=== PATIENT | female | born 1985 | race Caucasian/White ===

== ENCOUNTER 2017-05-13 06:00 | Inpatient (IN) ==
[2017-05-13] MEDS ORDERED: Ondansetron 4 MG/2 ML VIAL IVP PRN (08:48)
[2017-05-13] MEDS ORDERED: Naloxone 0.4 MG/ML INJ IVP PRN (08:48)
[2017-05-13] MEDS ORDERED: Famotidine 20 MG/2 ML VIAL IVP PRN (08:48)
[2017-05-13] MEDS ORDERED: *HR* FentaNYL (PF) 100 MCG/2 ML VIAL IVP PRN (08:48)
[2017-05-13] MEDS ORDERED: miSOPROStol 100 MCG TABLET PO SCH (09:00)
[2017-05-13] MEDS ORDERED: Ringers Solution, Lactated 1,000 ML IVC SCH (09:00)
[2017-05-13 09:38] LABS: Basophils % 0.3 %; Eosinophils % 0.2 %; Hematocrit 40.4 % (35.3-44.9); Hemoglobin 13.9 g/dL (11.5-15.4); Immature Granulocytes % 1.7 % (0-4); Lymphocytes # 1.7 K/mcL (0.6-4.6); Mean Corpuscular HGB Conc 34.4 g/dL (31.6-35.5); Mean Corpuscular Hemoglobin 32.3 pg (28.0-33.3); Mean Platelet Volume 11.4 fL (9.4-12.4); Monocytes # 0.8 K/mcL (0.0-1.3); Monocytes % 8.1 %; Neutrophils # 7.4 K/mcL (1.6-8.9); Platelet Count 205 K/mcL (140-400); Red Cell Distribution Width 13.6 % (11.5-14.5); Segmented Neutrophils % 72.7 %
[2017-05-13 09:45] LABS: Amphetamine Screen,Urine Negative ng/mL (Cutoff=1000); Barbiturate Screen,Urine Negative ng/mL (Cutoff=200); Benzodiazepines Screen,Urine Negative ng/mL (Cutoff=200); Cannabinoid Screen,Urine Negative ng/mL (Cutoff = 50); Cocaine Screen,Urine Negative ng/mL (Cutoff= 300); Opiate Screen,Urine Negative ng/mL (Cutoff=300); Phencyclidine Screen,Urine Negative ng/mL (Cutoff=25)
--- NOTE | 2017-05-13 09:48 | Anesthesia Evaluation PreOp ---
Date of Encounter: 05/13/17 Time of Encounter: 08:39 - Past History Planned Operation: vaginal del, G1 induction Cardiac History: Denies any Significant Hx Pulmonary History: Denies Any Significant HX EXTRACTION MACHINE OPERATOR History: Denies Any Significant HX Other Medical History: Denies Any Significant HX Anesthesia History: No Prior Anesthetic Complications, Past Anesthesia Alcohol Use: none Drug use: none Medications and Allergies 3 Allergy/AdvReac Type Severity Reaction Status Date / Time No Known Allergies Allergy Verified 10/03/16 11:08 Anesthesia Results - Labs 05/13/17 09:20 Anesthesia Exam - HEENT Pupil (Motor): Pupils equal Mallampati: II Teeth: Normal Oral Opening: Greater than 3 - EXTRACTION MACHINE OPERATOR LOC: Oriented EXTRACTION MACHINE OPERATOR Motor: Normal RUE, Normal LUE, Normal RLE, Normal LLE, Normal Face EXTRACTION MACHINE OPERATOR Sensory: Normal: RUE, LUE, RLE, LLE, Face - Cardiac Rhythm: Regular Murmur: None - Pulmonary Breath Sounds: bilateral Clear Respiratory Effort: Symmetrical Anesthesia Assess/Plan ASA Score: 2 Modified [place] Scale for Level of Consciousness: Cooperative, oriented, and tranquil Anesthetic Plan: General, Regional Monitoring Plan: Standard Monitors
--- NOTE | 2017-05-13 10:27 | OB/GYN History & Physical ---
Date of Encounter: 05/13/17 Time of Encounter: 10:18 Assessment and Plan (1) 39 weeks gestation of Current visit: Yes Status: Acute Labor and Delivery for IOL Routine labor management GBS- Negative Cytotec for induction Epidural for management of pain Consider pitocin and/or AROM for augmentation Anticipate vaginal delivery (2) Elective induction of labor planned Current visit: Yes Status: Acute See above -Cytotec History of Present Illness Chief complaint: Induction of labor HPI: Ms. Gambino is a 32 year old female at 39 weeks and 3 days gestation presents to the hospital for induction of labor. Patient has had an uncomplicated . She presents this morning to the hospital. She denies fluid leaking or vaginal bleeding. She is having contractions 3-5 minutes apart lasting 1 minute in length. She reports good movement. She denies any headache, visual changes, nausea or vomiting, fever, dysuria, or diarrhea. Blood type 0 + GBS - Rubella antibodies + Nonreactive hepatitis B surface antigen Treponema pallidum - Varicella - Past Med Surg Social Fam HX - Past Medical History Attestation: Yes The following information was validated with the patient. Medical history: no medical history Psychiatric history: no psych history - Social History Smoking Status: Never smoker Smokeless Tobacco Status: No Alcohol use: none Drug use: none - Family History Father Living Status: Age at : 43 Hx Family Cardiac Disorders: Yes Hx Family Cancer: Yes Obstetrical History - Pregnancies : 1 Para: 0 Term: 0 : 0 Ab's: 0 Livin Medications and Allergies 3 Allergy/AdvReac Type Severity Reaction Status Date / Time No Known Allergies Allergy Verified 10/03/16 11:08 Review of System OB All systems PM: reviewed and no additional remarkable complaints except as stated Exam - Constitutional Constitutional: well developed, well nourished, no acute distress - HEENT HEENT: Mucus Membranes Moist - Lungs Respiratory exam: CTAB (no wheezes, rales or rhonchi.) - Cardiovascular Cardiovascular exam: RRR (no murmurs, rubs or gallops), +S1, +S2 - Abdomen Abdomen: Present: gravid - Extremities Extremities exam: normal inspection Deep Tendon Reflex Grade: 2+ Normal - Cervix Dilation: 3 (per nurse) Effacement: 80 (per nurse) Station: -2 - Uterus Uterus exam: Present: normal size (non tender), normal contour Results Result Diagrams: 05/13/17 09:20 All other labs normal. - VTE Reasons for not Prescribing Prophylaxis: Treatment not Indicated - Low risk for VTE
[2017-05-13] MEDS ORDERED: Epidural Premix (fent/bupiv) 110 ML EP ONE ×2 (13:07→20:14)
--- NOTE | 2017-05-13 14:11 | OB Labor Progress Note ---
Date of Encounter: 05/13/17 Time of Encounter: 14:08 Labor Progress Note - Subjective Subjective: Patient resting in bed. Discussed POC with patient. Patient denies any questions or concerns. - Cervix Cervix: 5/80/-1 - Heart Tones Heart Tones: 140 bpm moderate variability +15x15 accels no decels noted. Cat 1 tracing. - Oracle Oracle: 2-5 min apart - Interventions Interventions: SVE, AROM large amount of clear fluid. IUPC placed without difficulty. Patient tolerated well. - Plan Plan: Continue labor management Will start Pitocin for labor for effective labor pattern if needed. Patient may have Nubain or epidural for pain management if desires.
--- NOTE | 2017-05-13 14:50 | Anesthesia Procedures ---
Date of Encounter: 05/13/17 Time of Encounter: 14:24 Procedures: Anesthesia - Epidural/Spinal Patient ID/Chart reviewed: Yes Patient examined: Yes OB Eval: Gestational age: term OB Eval: : 1 OB Eval: Contractions: Non-stressed pattern Consent Obtained: Yes Supplemental Oxygen: None/Room Air Site Prep: Aseptic Technique, Sterile prep and drape, 0.5% Chlorhexidine/Alcohol Patient position: upright Local Anesthetic: Lidocaine 1% Amount of Local Anesthetic used: 2 Touhy Needle Gauge: 18 Touhy Needle Depth (cm): 8 Catheter Depth at Skin (cm): 12 Test Dose (1.5% Lido + Epi): Volume given (mls): 3 Test Dose Result: Negative Loading Dose: Other: 12 from solution Loading Dose Administered: Thru Catheter Infusion Med: 0.125% Bupivacaine w/ 2 mcg/ml Fentanyl Infusion Rate (mls/hr): [address]: Tegaderm, Tape Interspace Used: L4-L5 Loss of Resistance (MATT): Yes (saline) Blood: No CSF: No Paresthesia: No Procedure: vss though out, FHR stable per RN's
[2017-05-13] MEDS ORDERED: Oxytocin 20 units/ LR 1000 mL 20 UNIT/1,000 ML BAG IVC SCH (15:00)
[2017-05-14] MEDS ORDERED: Epidural Premix (fent/bupiv) 110 ML EP ONE (03:26)
--- NOTE | 2017-05-14 04:25 | OB/GYN Procedure Note ---
Delivery - Delivery Date: 05/14/17 Provider: Jackie Leblanc Intrapartum events: none Delivery induction: AROM, oxytocin, misoprostol Delivery monitor: external FHT, external uterine, internal FHT, internal uterine Anesthesia: epidural Estimated Blood Loss: 475 - Infant (s) A Delivery Date: 05/14/17 Delivery Time: 03:41 Presentation: vertex Position: JERRY Route of delivery: Gender: Male Viability: Viable Pounds: 8 Ounces: 9 Weight Gram: 3.73 kg at 1 minute: 8 at 5 mins: 9 Shoulder Dystocia: not encountered Specimens collected: cord blood Placenta: spontaneous Cord: 3 umbilical vessels - Repair Episiotomy: none Laceration Description: Perineal - 2nd Degree - Complications Delivery complications: none Delivery comments: Called to evaluate patient for decels with pushing. Pitocin is off, patient fredi q 5-6 minutes. head OA at +1 station. With maternal effort head progresses with variable decels. Maternal exhaustion and intolerance of labor patient was verbally consented for vacuum application. Bladder was drained. Kiwi applied to head and with maternal effort during contraction with vacuum to the green indicator and 2 pop offs with advancement of the head. Baby tolerated well. The vacuum was not reapplied after the second pop off until the next contraction. The Kiwi was reapplied with the next contraction in the same manner and the head delivered. The kiwi was released. No nuchal cord or shoulder dystocia was encountered. Infant was placed on mom's abdomen. Cord was allowed to cease pulsation prior to double clamp and cut. Cord blood was collected. She delivered over a second degree perineal laceration. The laceration was repaired using 2-0 and 3-0 vicryl in standard fashion. Placenta delivered spontaneous, complete, and intact with 3 vessel cord. Mother and are recovering in LDR in stable condition. - Disposition Mom disposition: stable in LDR disposition: stable in LDR
[2017-05-14] MEDS ORDERED: Acetaminophen 325 MG TABLET PO PRN (06:11)
[2017-05-14] MEDS ORDERED: Oxytocin 20 units/ LR 1000 mL 20 UNIT/1,000 ML BAG IVC SCH (06:11)
[2017-05-14] MEDS ORDERED: Oxytocin 20 units/ LR 1000 mL 20 UNIT/1,000 ML BAG IVC ONE (06:11)
[2017-05-14] MEDS: Prenatal Vit/FA 1 EACH TABLET PO SCH (09:12)
[2017-05-14] MEDS: Ibuprofen 600 MG TABLET PO PRN ×2 (09:13→15:47)
[2017-05-15] MEDS: Ibuprofen 600 MG TABLET PO PRN (03:30)
[2017-05-15 06:24] LABS: Basophils % 0.2 %; Eosinophils # 0.1 K/mcL (0.0-0.6); Eosinophils % 1.1 %; Hematocrit 25.8 % (35.3-44.9); Immature Granulocytes % 1.5 % (0-4); Lymphocytes # 2.3 K/mcL (0.6-4.6); Lymphocytes % 18.6 %; Mean Corpuscular HGB Conc 32.9 g/dL (31.6-35.5); Mean Corpuscular Hemoglobin 31.6 pg (28.0-33.3); Mean Corpuscular Volume 95.9 fL (83.0-100.0); Mean Platelet Volume 11.1 fL (9.4-12.4); Monocytes # 0.9 K/mcL (0.0-1.3); Monocytes % 7.5 %; Neutrophils # 8.9 K/mcL (1.6-8.9); Platelet Count 158 K/mcL (140-400); Red Blood Count 2.69 M/mcL (3.82-4.97); Red Cell Distribution Width 14.2 % (11.5-14.5); Segmented Neutrophils % 71.1 %
[2017-05-15 06:27] LABS: Hemoglobin 8.5 g/dL (11.5-15.4)
[2017-05-15 08:15] VITALS: BP 125/64
[2017-05-15] MEDS: Prenatal Vit/FA 1 EACH TABLET PO SCH (08:16)
--- NOTE | 2017-05-15 09:28 | Discharge Summary ---
Date of Encounter: 05/15/17 Time of Encounter: 09:25 - Discharge Diagnosis (1) Vaginal delivery Priority: Primary Status: Acute Comments: Pt meeting all posptartum milestones. She desires discharge home today. (2) Mother currently breast-feeding Priority: Secondary Status: Acute Comments: Pt has madela breastpump at home (3) anemia Priority: Secondary Status: Acute Comments: home on iron, pt denies s/sx anemia - Discharge Medications Prescriptions: Ibuprofen [Motrin] 600 mg PO Q6HR PRN #30 tablet PRN Reason: Cramping Docusate [Colace] 100 mg PO BID #60 capsule Ferrous Sulfate 325 mg PO DAILY #30 tablet Home Medications: Acetaminophen [Tylenol] 650 mg PO Q6HR PRN tablet 05/15/17 [Rx] Docusate [Colace] 100 mg PO BID #60 capsule 05/15/17 [Rx] Ferrous Sulfate 325 mg PO DAILY #30 tablet 05/15/17 [Rx] Ibuprofen [Motrin] 600 mg PO Q6HR PRN #30 tablet 05/15/17 [Rx] Allergies/Adverse Reactions: 3 Allergy/AdvReac Type Severity Reaction Status Date / Time No Known Allergies Allergy Verified 10/03/16 11:08 Data Procedures and tests throughout hospitalization: Laboratory Tests 05/13/17 05/13/17 05/15/17 09:20 09:20 05:57 WBC 10.2 12.5 H RBC 4.30 2.69 L Hgb 13.9 8.5 L D Hct 40.4 25.8 L MCV 94.0 95.9 MCH 32.3 31.6 MCHC 34.4 32.9 RDW 13.6 14.2 Plt Count 205 158 MPV 11.4 11.1 Immature Gran % 1.7 1.5 Seg Neutrophils % 72.7 71.1 Lymphocytes % 17.0 18.6 Monocytes % 8.1 7.5 Eosinophils % 0.2 1.1 Basophils % 0.3 0.2 Neutrophils # 7.4 8.9 Lymphocytes # 1.7 2.3 Monocytes # 0.8 0.9 Eosinophils # 0.0 0.1 Basophils # 0.0 0.0 Urine Opiates Screen Negative Ur Barbiturates Screen Negative Ur Phencyclidine Scrn Negative Ur Amphetamines Screen Negative U Benzodiazepines Scrn Negative Urine Cocaine Screen Negative U Marijuana (THC) Screen Negative Labs on day of discharge: Labs from last 24 hours 05/15/17 05:57 WBC 12.5 H RBC 2.69 L Hgb 8.5 L D Hct 25.8 L MCV 95.9 MCH 31.6 MCHC 32.9 RDW 14.2 Plt Count 158 MPV 11.1 Immature Gran % 1.5 Seg Neutrophils % 71.1 Lymphocytes % 18.6 Monocytes % 7.5 Eosinophils % 1.1 Basophils % 0.2 Neutrophils # 8.9 Lymphocytes # 2.3 Monocytes # 0.9 Eosinophils # 0.1 Basophils # 0.0 Date of admission: 05/13/17 08:14 Primary care physician: Fitz Donato CNP Consults: 05/14/17 06:11 Consult to Preschool Adviser [CONS] Routine Comment: Vaginal delivery, consult needed Discharging clinician: Maryanne Grant Anticipated date of discharge: 05/15/17 - Patient Status Disposition: Home, Self-Care Condition: Good Functional capacity at discharge: independent ambulation Overall status at discharge: patient is progressing back to baseline - Discharge Instructions Follow Up With: Fitz Donato CNP [Primary Care Provider] - Jackie Leblanc DO [Partnered Physician] - - Diet and Activity Activity: increase activity as tolerated Diet: regular diet Hospital Course Reason for admission: induction of labor Delivery: Episiotomy: none Laceration: 2nd degree Other procedures: none complications: none Discharge diagnosis: IUP at term delivered [place] baby: male Hospital course: - Delivery Date: 05/14/17 Provider: Jackie Leblanc Intrapartum events: none Delivery induction: AROM, oxytocin, misoprostol Delivery monitor: external FHT, external uterine, internal FHT, internal uterine Anesthesia: epidural Estimated Blood Loss: 475 - (s) A Delivery Date: 05/14/17 Delivery Time: 03:41 Presentation: vertex Position: JERRY Route of delivery: Gender: Male Viability: Viable Pounds: 8 Ounces: 9 Weight Gram: 3.73 kg at 1 minute: 8 at 5 mins: 9 Shoulder Dystocia: not encountered Specimens collected: cord blood Placenta: spontaneous Cord: 3 umbilical vessels - Repair Episiotomy: none Laceration Description: Perineal - 2nd Degree - Complications Delivery complications: none - Disposition Mom disposition: home PPD1 disposition: home with mother, Time Attestation: Total time spent providing and/or coordinating discharge services: Time Spent: Less than 30 minutes Exam - Constitutional Vitals: Temp Pulse Resp BP Pulse Ox 97.9 F 89 18 125/64 98 05/15/17 07:30 05/15/17 07:30 05/15/17 07:30 05/15/17 07:30 05/15/17 02:06 General appearance IM: A&O X 3, pleasant, no acute distress - Respiratory Respiratory exam: Present: CTAB - Cardiovascular Cardiovascular exam IM: Present: RRR, +S1, +S2 - GI/Abdominal GI/Abdominal exam IM: soft - Uterine Tone: Firm - Extremities Exam Extremities exam IM: Present: pedal edema (1+ bilateral) - Neurological Exam Neurological exam: normal gait, oriented X3 - Psychiatric Additional comments: reports good mood
== END 2017-05-15 14:16 | disposition home or self-care (01) | DRG 775 ==
LOC: 1NENULAB 08:14 → 1NENUOBS 05-14 06:15
PROVIDERS: ADMIT Obstetrics & Gynecology; ATTEND Obstetrics & Gynecology

== ENCOUNTER 2017-05-30 21:33 | Observation (INO) ==
[2017-05-30] MEDS: Ringers Solution, Lactated 1,000 ML IVC SCH (22:00)
[2017-05-30] MEDS ORDERED: Lidocaine -MPF 2% 2 ML VIAL ONE (22:26)
[2017-05-30] MEDS ORDERED: *HR* Succinylcholine 200 MG/10 ML VIAL IVP ONE (22:26)
[2017-05-30] MEDS ORDERED: *HR* Rocuronium Bromide 50 MG/5 ML VIAL ONE (22:26)
[2017-05-30] MEDS ORDERED: Lidocaine -MPF 4% 5 ML AMPUL ONE (22:26)
[2017-05-30] MEDS ORDERED: *HR* Midazolam HCl 2 MG/2 ML VIAL ONE (22:27)
[2017-05-30] MEDS ORDERED: *HR* FentaNYL (PF) 100 MCG/2 ML VIAL ONE (22:27)
[2017-05-30] MEDS ORDERED: *HR* Propofol 200 MG/20 ML VIAL IVP ONE (22:27)
--- NOTE | 2017-05-30 22:28 | General Surg History&Physical ---
Date of Encounter: 05/30/17 Time of Encounter: 20:05 History of Present Illness Chief complaint: Right lower quadrant abdominal pain, acute appendicitis HPI: Ms. Gambino is a 32 year old female transferred from [facility] after presenting there with approximately a 21 hour history of progressive right lower quadrant abdominal pain. Patient describes some minor nausea but no emesis. Pain started abruptly approximately 0100 hours in the right lower quadrant. It has progressed in severity and now is described as across the lower abdomen. No fevers, chills, rigors, dysuria or jaundice. White count 12.5, hemoglobin 12.1, hematocrit 37.1. Electrolytes, BUN, creatinine, LFTs all within normal limits except for alkaline phosphatase of 194. The patient is 3 weeks and this alkaline phosphatase may be reflective of that recent events. CT completed at [facility] is notable for the presence of a calcified gallstone without obvious pericholecystic inflammation and an enlarged appendix with periappendiceal stranding. The findings are consistent with acute appendicitis for which the patient has been transferred to [facility] for further evaluation and possible treatment. Past medical history: Unremarkable Surgical history: [place] teeth extraction; LEEP procedure approximately 10 years ago Allergies: No known drug allergies Medications: Iron, vitamins and stool softeners Social history: Patient is , lives with spouse; , 3 weeks . Patient has never smoked, she admits to an occasional alcoholic beverage but none during her . She denies any illicit drug use Family history: Noncontributory Physical Examination: Age-appropriate woman in no acute distress; skin is warm, no obvious jaundice, weight 93.44 kg; height not recorded Temperature 99.3, pulse 100-104, respirations 18, blood pressure 125/75; SPO2 on room air 100% Lungs: Clear bilaterally, no abdominal pain on deep inspiration Cardiac: Rapid rate but no appreciable murmurs Abdomen: Soft with tenderness in the right lower quadrant, no tenderness in the other 3 quadrants. Multiple stria consistent with recent . No obvious intra-abdominal masses; no rebound. Hypoactive bowel sounds Extremities: No obvious clubbing cyanosis or edema Impression: 32-year-old female, 3 weeks , with clinical and radiologic evidence of acute appendicitis. Surgery has been recommended and discussed in detail. Risks include hemorrhage, infection, intra-abdominal abscess, injury to adjacent structures, possible removal of a normal appendix. The patient is a reasonable candidate for laparoscopic appendectomy but understands that an open appendectomy may become necessary. The patient, her , and mother, all expressed understanding. I attempted to answer all of their questions. Consent for surgery has been obtained. Incidental note of cholelithiasis was discussed with the patient. Past Med Surg Social Fam HX - Past Medical History Medical history: no medical history Psychiatric history: no psych history - Social History Smoking Status: Never smoker Smokeless Tobacco Status: No Alcohol use: none Drug use: none - Family History Father Living Status: Hx Family Cardiac Disorders: Yes Hx Family Cancer: Yes Medications and Allergies Acetaminophen [Tylenol] 650 mg PO Q6HR PRN tablet 05/15/17 [Rx] Docusate [Colace] 100 mg PO BID #60 capsule 05/15/17 [Rx] Ferrous Sulfate 325 mg PO DAILY #30 tablet 05/15/17 [Rx] Ibuprofen [Motrin] 600 mg PO Q6HR PRN #30 tablet 05/15/17 [Rx] Vits #90/Iron Fum/FA [ Formula Tablet] 1 each PO QAM 05/30/17 [ History] 3 Allergy/AdvReac Type Severity Reaction Status Date / Time No Known Allergies Allergy Verified 10/03/16 11:08 Review of Systems All systems PM: A 10-system review of systems was performed and is negative for pertinent findings except as documented above in the HPI. General Surgery Exam Initial Vital Signs Temp Pulse Resp BP Pulse Ox 99.0 F 87 14 121/79 98 05/30/17 21:35 05/30/17 21:35 05/30/17 21:35 05/30/17 21:35 05/30/17 21:35 Results - Labs All other labs normal.
--- NOTE | 2017-05-30 22:41 | Anesthesia Evaluation PreOp ---
Date of Encounter: 05/30/17 Time of Encounter: 22:39 - Past History Planned Operation: Lap Appy Cardiac History: Denies any Significant Hx Pulmonary History: Denies Any Significant HX VEHICLE CARE SPECIALIST History: Denies Any Significant HX Other Medical History: Denies Any Significant HX Anesthesia History: No Prior Anesthetic Complications, Past Anesthesia (LEEP, [place] teeth), MH (No FamHx of ) : No Test: Negative Alcohol Use: none Drug use: none Medications and Allergies Acetaminophen [Tylenol] 650 mg PO Q6HR PRN tablet 05/15/17 [Rx] Docusate [Colace] 100 mg PO BID #60 capsule 05/15/17 [Rx] Ferrous Sulfate 325 mg PO DAILY #30 tablet 05/15/17 [Rx] Ibuprofen [Motrin] 600 mg PO Q6HR PRN #30 tablet 05/15/17 [Rx] Vits #90/Iron Fum/FA [ Formula Tablet] 1 each PO QAM 05/30/17 [ History] 3 Allergy/AdvReac Type Severity Reaction Status Date / Time No Known Allergies Allergy Verified 10/03/16 11:08 - Meds/Allergy Pre-op Review Medications Reviewed: Yes Allergies Reviewed: Yes Beta Blockers on Current Med List: No Anesthesia Results - Labs Laboratory Results Urine Test Negative (Negative) 05/30/17 22:25 Anesthesia Exam Vital Signs Temp Pulse Resp BP Pulse Ox 05/30/17 21:35 99.0 F 87 14 121/79 98 Intake and Output 05/30/17 05/30/17 05/30/17 07:59 15:59 23:59 Other: Stool Characteristics Normal for Patient Weight 93.894 kg Patient Weight 05/30/17 23:59 Weight 93.894 kg Height: 5'6" Weight: 207# BMI = 33 NPO (# of Hours): MNOc - HEENT Pupil (Motor): Pupils equal, EOMI Mallampati: II Teeth: Normal Oral Opening: Greater than 3 - VEHICLE CARE SPECIALIST LOC: Oriented VEHICLE CARE SPECIALIST Motor: Normal RUE, Normal LUE, Normal RLE, Normal LLE, Normal Face VEHICLE CARE SPECIALIST Sensory: Normal: RUE, LUE, RLE, LLE, Face - Cardiac Rhythm: Regular Murmur: None - Pulmonary Breath Sounds: bilateral Clear Respiratory Effort: Symmetrical Anesthesia Assess/Plan ASA Score: 1 Modified [place] Scale for Level of Consciousness: Cooperative, oriented, and tranquil Anesthetic Plan: General Monitoring Plan: Standard Monitors Recovery Plan: PACU Anes Supervising Prov Stmt: Pt seen/evaluated,R&B Discussed, questions answered and consent obtained. Leonela Dolan MD
[2017-05-30] MEDS ORDERED: *HR* HYDROmorphone (PF) 1 MG/ML SYRINGE IVP PRN (22:51)
[2017-05-30] MEDS ORDERED: *HR* Promethazine 25 MG/ML VIAL IVP PRN (22:51)
[2017-05-30] MEDS ORDERED: *HR* Labetalol 20 MG/4 ML SYRINGE IVP PRN (22:51)
[2017-05-30] MEDS ORDERED: Acetaminophen IV 1,000 MG/100 ML INFUS..BTL ONE (22:56)
[2017-05-30] MEDS ORDERED: cefOXitin 1,000 MG in Water for inj. (sterile) 10 ML IVP ONE (23:00)
[2017-05-30] MEDS ORDERED: cefOXitin 1,000 MG in D5% in Water (Mini-Bag+) 100 ML IVPB ONE (23:02)
[2017-05-30] MEDS ORDERED: Bupivacaine/EPI 1:200k 0.25%PF 30 ML VIAL ONE (23:10)
[2017-05-30] MEDS ORDERED: CefOXitin 2,000 MG VIAL ONE (23:28)
[2017-05-30] MEDS ORDERED: Ondansetron 4 MG/2 ML VIAL ONE (23:32)
[2017-05-30] MEDS ORDERED: Dexamethasone 4 MG/ML VIAL ONE (23:32)
[2017-05-30] MEDS ORDERED: Ketorolac 30 MG/ML VIAL ONE (23:49)
[2017-05-30] MEDS ORDERED: Neostigmine Methylsulfate 3 MG/3 ML SYRINGE ONE (23:49)
[2017-05-31] MEDS ORDERED: *HR* HYDROmorphone 2 MG/ML SYRINGE ONE (00:05)
[2017-05-31] MEDS: Ringers Solution, Lactated 1,000 ML IVC SCH ×2 (00:12→00:24)
--- NOTE | 2017-05-31 00:13 | Operative Note ---
Date of procedure: 05/31/17 Pre-op diagnosis: acute appendicitis Post-op diagnosis: same Procedure: Laparoscopic appendectomy Complications: None apparent Anesthesia: GETA Local Anesthetics: 0.25% Sensorcaine HCL with Epinephrine 1:200,000 SubQ (cc) ( 30 mL) Surgeon: Jerrod Burton Estimated blood loss (cc): 5 IV fluids (cc): 900 Specimen: appendix Condition: stable Disposition: PACU Procedure in Detail: The patient was brought to the operating room where she was placed supine upon the operating room table. Operative consent had been obtained preoperatively. The patient was appropriately identified as to person and procedure. The accuracy of this information was confirmed by the procedure team. The patient was then intubated and anesthetized under the supervision of Dr. Sera Turner. The abdomen was prepped and draped in the usual sterile fashion. Several milliliters of 0.25% bupivacaine with 1-200,000 units of epinephrine was infiltrated into the infraumbilical skin. A small transverse incision was made with dissection extended to the fascia. The fascia was infiltrated with additional bupivacaine with epinephrine. The fascia was then grasped, elevated , and incised. An 11 mm Xcel port was placed. The rigid laparoscope was placed within the obturator to visualize passage through the layers of the anterior abdominal wall. When the abdominal cavity was accessed, the obturator was replaced by the rigid laparoscope, the abdomen was insufflated with gaseous carbon dioxide. There was no obvious visible injury from establishing the port. An acutely inflamed, enlarged appendix adherent to the anterior abdominal wall was readily identified. Under direct visualization a 5 mm port was placed in the suprapubic midline anterior abdominal wall and a 12 mm port established in the left lower quadrant, midclavicular line. Both sites were infiltrated with the bupivacaine with epinephrine solution. The appendix was dissected from the anterior abdominal wall. Fibrinous exudate coated the appendix, pus was evident in the pelvis. The pus was evacuated with an endoscopic suction device. The appendix was mobilized carefully to avoid disruption and/or discharge of intra-appendiceal contents. The mesoappendix was divided at the junction between the appendix and the cecum using endoscopic [place] dissectors. The appendix was transected at its junction with the cecum with an Ethicon ATS 45 mm stapler (blue cartridge). The mesoappendix was then divided using the Ethicon ATS 45 mm stapler using a vascular cartridge. The appendix was from the surrounding structures and placed in an endoscopic pouch. The appendix was extracted through the infraumbilical port and sent to pathology. The appendix was markedly thickened and, as noted above covered with an inflammatory, fibrinous exudate. The staple lines were inspected and found to be intact. Additional inflammatory fluid was suctioned and then the pneumoperitoneum was evacuated. The instrumentation was removed. The fascia of the infraumbilical port was closed with interrupted figure-of- eight 0-Vicryl using S retractors. The skin edges of the ports were approximated using subcuticular 4-0 Vicryl. The incisions were sealed with Dermabond dermal adhesive. The patient was taken to recovery in stable condition. Needle, sponge, and instrument counts were correct at the close of the case. Total volume of 0.25% bupivacaine with 1-200,000 units epinephrine used during this procedure, 30 mL.
[2017-05-31] MEDS ORDERED: Ringers Solution, Lactated 500 ML IVC ONE (00:20)
[2017-05-31] MEDS ORDERED: *HR* HYDROmorphone (PF) 1 MG/ML SYRINGE IVP PRN (00:41)
[2017-05-31] MEDS ORDERED: Ondansetron 4 MG/2 ML VIAL IVP PRN (00:41)
[2017-05-31] MEDS ORDERED: Ringers Solution, Lactated 1,000 ML IVC SCH (00:41)
[2017-05-31] MEDS ORDERED: *HR* OxyCODONE/APAP 5/325 TABLET PO PRN (00:41)
[2017-05-31] MEDS ORDERED: Acetaminophen 325 MG TABLET PO PRN (00:41)
--- NOTE | 2017-05-31 00:54 | Anesthesia Evaluation Post Op ---
Date of Encounter: 05/31/17 Time of Encounter: 00:53 - Vital Signs Vital Signs: Vital Signs/O2 Sat/Glucose, Most Current Temp Pulse Resp BP Pulse Ox 05/31/17 00:38 97.4 F L 66 16 108/61 99 05/31/17 00:28 80 18 113/60 96 05/31/17 00:18 66 18 119/66 94 05/31/17 00:08 98.5 F 71 20 119/80 96 05/30/17 21:35 99.0 F 87 14 121/79 98 - Lungs Lungs: Clear Ascult./Percussion - Airway Airway: Non-obstructed - Cardiovascular Regular Rate - Mental Status Mental Status: Asleep with brisk response to light stimulation - Pain Pain Scale: 1 Pain Scale used: Weinstein-Graves (Faces) - Nausea Vomiting Nausea Vomiting: Responds to treatment with IV Meds - Hydration Hydration: Tolerates oral liquids, Has not voided - Discharge PostOp Status: Transfer Patient to floor Anes Supervising Prov Stmt: Pt seen/evaluated, VSS and pt has met criteria for discharge to floor. - MD Kelsi
[2017-05-31 03:55] VITALS: BP 104/68
[2017-05-31 05:49] LABS: Basophils % 0.1 %; Hematocrit 31.5 % (35.3-44.9); Hemoglobin 10.1 g/dL (11.5-15.4); Immature Granulocytes % 0.5 % (0-4); Lymphocytes # 0.7 K/mcL (0.6-4.6); Lymphocytes % 5.1 %; Mean Corpuscular HGB Conc 32.1 g/dL (31.6-35.5); Mean Corpuscular Hemoglobin 31.3 pg (28.0-33.3); Mean Corpuscular Volume 97.5 fL (83.0-100.0); Mean Platelet Volume 9.2 fL (9.4-12.4); Monocytes # 0.4 K/mcL (0.0-1.3); Monocytes % 2.9 %; Neutrophils # 11.7 K/mcL (1.6-8.9); Platelet Count 281 K/mcL (140-400); Red Blood Count 3.23 M/mcL (3.82-4.97); Segmented Neutrophils % 91.4 %
[2017-05-31] MEDS ORDERED: Piperacillin/Tazobactam 3.375 GM in D5% in Water 50 ML IVPB ONE (06:00)
[2017-05-31] MEDS ORDERED: Prenatal Vit/FA 1 EACH TABLET PO SCH (09:00)
--- NOTE | 2017-05-31 11:30 | General Surgery Progress Note ---
Date of Encounter: 05/31/17 Time of Encounter: 11:29 Subjective Patient reports: feels better Narrative: Mendez Limon - post op - patient feeling well, significant improvement from preoperative state. Afebrile, vital signs stable with pulse is 86, respirations 16, blood pressure 104/68. Tolerating diet, no nausea or vomiting Lungs: Clear Abdomen: Soft with minimal right lower quadrant tenderness. Port sites intact and healing well. Postop labs: White count 12.8 - likely response to surgery Hemoglobin 10.1 and hematocrit 31.5 - patient still anemic from her recent (2 weeks ); Persistent neutrophilia 11.7% also likely due to postoperative response Impression: 32-year-old female status post laparoscopic appendectomy. Feeling much improved. Status stable for discharge home Plan: Discharge home Follow up my office, 06/05/17. Tylenol, Motrin, Advil, etc. as needed for pain Prescription for Percocet 5/325, #6, 1 every 6-8 hours as needed for pain not relieved by [id number] medications Patient may resume breast-feeding after midnight tonight. This was discussed with the patient and her pre op as well as on discharge. Objective Vital Signs - Last 8 Hours Temp Pulse Resp BP Pulse Ox 05/31/17 08:00 100 05/31/17 03:53 98.0 F 86 16 104/68 100 Intake and Output 05/30/17 05/31/17 05/31/17 23:59 07:59 15:59 Intake Total 1900 / 1900 240 / 240 Output Total 5 / 5 Balance 1895 / 1895 240 / 240 Intake: IV Fluids 1900 / 1900 Lactated Ringers 1,000 ML @ 25 1900 / 1900 mls/hr IVC .Q24H DAKOTAH Rx#: [id number] Oral 240 / 240 Output: Estimated Blood Loss 5 / 5 Other: Meal Breakfast Percent of Meal Consumed 100% Weight 95.6 kg Patient Weight 05/31/17 23:59 Weight 95.6 kg - Labs 05/31/17 05:41 - VTE Documentation of Mechanical Device: Intermittent pneumatic compression device Consult Discharge Plan - Plan Referrals: Fitz Donato, [employer]PH[employer] DEVELOPER [Primary Care Provider] -
--- NOTE | 2017-05-31 11:38 | Discharge Summary ---
Outpatient Proc Discharge Plan - Plan Additional Instructions: Regular diet Activity as tolerated, patient may walk, climb stairs, etc. LIFTING LIMITED TO LESS THAN 20# Patient may shower, wash incisions with soap and water Patient has been instructed to follow pump and dump" until midnight tonight - the patient may then resume breast-feeding Tylenol, ibuprofen, Motrin, Advil, etc. as needed for pain Prescription for Percocet 5/325, #6, 1 every 6-8 hours as needed for pain not relieved by [id number] medications Follow-up my office, 06/05/17. Patient is to call the office tomorrow morning after 9 AM to make this appointment Prescriptions: OxyCODONE/APAP 5/325 [Percocet 5/325 MG] 1 each PO Q6-8H PRN #6 tablet PRN Reason: Pain Home Medications: Acetaminophen [Tylenol] 650 mg PO Q6HR PRN tablet 05/15/17 [Rx] Docusate [Colace] 100 mg PO BID #60 capsule 05/15/17 [Rx] Ferrous Sulfate 325 mg PO DAILY #30 tablet 05/15/17 [Rx] Ibuprofen [Motrin] 600 mg PO Q6HR PRN #30 tablet 05/15/17 [Rx] Vits #90/Iron Fum/FA [ Formula Tablet] 1 each PO QAM 05/30/17 [ History] OxyCODONE/APAP 5/325 [Percocet 5/325 MG] 1 each PO Q6-8H PRN #6 tablet 05/31/17 [Rx] Forms (Work/Release): ED Satisfaction Letter, Work/School Release
== END 2017-05-31 13:00 | disposition home or self-care (01) ==
LOC: 3ANU 21:33 → EMEROO 21:33 → 3ANU 22:30
PROVIDERS: ADMIT Surgery; ATTEND Surgery